=== PATIENT | female | born 1955 | race Caucasian/White ===

== ENCOUNTER 2019-02-25 16:14 | Emergency (ER) | payer BC ==
[~2019-02-25] VITALS: Ht 165.1 cm; Wt 102.5 kg
[2019-02-25 16:27] VITALS: BP 200/103; Ht 165.1 cm; Wt 102.5 kg
== END 2019-02-25 17:58 | disposition home or self-care (01) ==
LOC: ED 16:14
DX: N39.0 Urinary tract infection, site not specified (principal); R30.0 Dysuria; I10 Essential (primary) hypertension; E66.9 Obesity, unspecified; Z68.37 Body mass index [BMI] 37.0-37.9, adult; Z88.6 Allergy status to analgesic agent